=== PATIENT | male | born 1945 | race African-American/Black ===

== ENCOUNTER 2018-04-22 12:13 | Inpatient (IN) | payer OTHER ==
[2018-04-22 12:46] VITALS: BMI 24.3
--- NOTE | 2018-04-22 15:13 | HP ---
COWS - Scale Resting Pulse: 0= [place] 80 or Below Sweatin= Chills/Flushing Restless Observation: 1= Difficult to Sit Still Pupil Size: 1= Pupils >than Normal Bone or Joint Aches: 2= Severe Diffuse Aches Runny Nose/ Eye Tearin= Runny Nose/Eyes GI Upset > 30mins: 2= Nausea/Diarrhea Tremor Observation: 2= Slight Tremor Visible Yawning Observation: 1= 1-2x During Session Anxiety or Irritability: 2=Irritable/Anxious Goose Flesh Skin: 0=Smooth Skin COWS Score: 14 Admission ROS S - HPI Chief Complaint: i need help to stop using heroin Allergies/Adverse Reactions: Allergies Allergy/AdvReac Type Severity Reaction Status Date / Time No Known Allergies Allergy Verified 04/22/18 14:40 History of Present Illness: this 72 years old male with heroin dependence seeking detox,withdrawal symptom, last detox [facility] hepatitis c old fx of left hip in 2015 arthritis both hips ambulation with walker nicotine dependence no significant period of sobriety plan to go rehab after detox - Ebola screening Have you traveled outside of the country in the last 21 days: No Have you had contact with anyone from an Ebola affected area: No Have you been sick,other than usual withdrawal symptoms: No Do you have a fever: No - Review of Systems Constitutional: Chills, Loss of Appetite, Malaise, Night Sweats, Changes in sleep, Weakness EENT: reports: Tearing, Nose Congestion Respiratory: reports: No Symptoms reported Cardiac: reports: No Symptoms Reported GI: reports: Diarrhea, Nausea, Vomiting, Abdominal cramping : reports: No Symptoms Reported Musculoskeletal: reports: Back Pain, Joint Pain, Muscle Pain, Joint Stiffness, Other (ambulation with walker) Integumentary: reports: Dryness Neuro: reports: Headache, Tremors Endocrine: reports: No Symptoms Reported Hematology: reports: No Symptoms Reported Psychiatric: reports: No Sypmtoms Reported, Judgement Intact, Mood/Affect Appropiate, Orientated x3 Patient History - Patient Medical History Hx Anemia: No Hx Asthma: No Hx Chronic Obstructive Pulmonary Disease (COPD): No Hx Cancer: No Hx Cardiac Disorders: No Hx Congestive Heart Failure: No Hx Hypertension: No Hx Hypercholesterolemia: No Hx Pacemaker: No HX Cerebrovascular Accident: No Hx Seizures: No Hx Dementia: No Hx Diabetes: No Hx Gastrointestinal Disorders: No Hx Liver Disease: No Hx Genitourinary Disorders: No Hx Sexually Transmitted Disorders: No Hx Renal Disease (ESRD): No Hx Thyroid Disease: No Hx Human Immunodeficiency Virus (HIV): No (last 2018 negative) Hx Hepatitis C: Yes Hx Depression: No Hx Suicide Attempt: No Hx Schizophrenia: No Other Medical History: no suicidal,no homicidal - Patient Surgical History Past Surgical History: Yes Hx Neurologic Surgery: No Hx Cataract Extraction: No Hx Cardiac Surgery: No Hx Lung Surgery: No Hx Breast Surgery: No Hx Breast Biopsy: No Hx Abdominal Surgery: Yes (left inguinal hernia repair in 1962) Hx Appendectomy: No Hx Cholecystectomy: No Hx Genitourinary Surgery: No Hx Section: No Hx Orthopedic Surgery: No Other Surgical History: left inguinal hernia repair in 1962 Anesthesia Reaction: No - PPD History Previous Implant?: Yes Documented Results: Negative w/o proof Implanted On Prior [facility] Admission?: No PPD to be Administered?: Yes - Smoking Cessation Smoking history: Current every day smoker Have you smoked in the past 12 months: Yes Aproximately how many cigarettes per day: 3 Hx Chewing Tobacco Use: No Initiated information on smoking cessation: Yes 'Breaking Loose' booklet given: 04/22/18 - Substance & Tx. History Hx Alcohol Use: No Hx Substance Use: Yes Substance Use Type: Heroin Hx Substance Use Treatment: Yes (in 2016 at [facility]) - Substances Abused Heroin Route: Inhalation Frequency: Daily Amount used: 4-5 bags Age of first use: 19 Date of Last Use: 04/21/18 Suboxone Route: sl Amount used: 1 tab. Age of first use: 72 Date of Last Use: 03/21/18 Family Disease History - Family Disease History Family Disease History: Other: Father (alcohol,), Mother (), Brother (dsa ) Admission Physical Exam BHS - Vital Signs Vital Signs: Vital Signs - 24 hr 04/22/18 12:44 Temperature 98.4 F Pulse Rate 77 Respiratory 20 Rate Blood Pressure 111/68 - Physical General Appearance: Yes: Moderate Distress, Tremorous, Irritable, Sweating, Anxious HEENTM: Yes: Normal ENT Inspection, LIBERTAD, Pharynx Normal Respiratory: Yes: Lungs Clear, Normal Breath Sounds, No Respiratory Distress Neck: Yes: Within Normal Limits, Supple, Trachea in good position Breast: Yes: Within Normal Limits Cardiology: Yes: Within Normal Limits, Regular Rhythm, Regular Rate, S1, S2 Abdominal: Yes: Within Normal Limits, Normal Bowel Sounds, Non Tender, Flat, Soft Genitourinary: Yes: Within Normal Limits Back: Yes: Normal Inspection, Muscle Spasm Musculoskeletal: Yes: Back pain, Joint Stiffness, Muscle Pain, Other (old fx left hip arthritis both hips) Extremities: Yes: Non-Tender, Tremors Neurological: Yes: pediatric rn II-XII NML intact, Fully Oriented, Alert, Motor Strength 5/5 Integumentary: Yes: Dry Lymphatic: Yes: Within Normal Limits - Diagnostic (1) Opioid dependence with withdrawal Status: Acute (2) History of fracture of left hip Status: Chronic (3) Arthritis of both hips Status: Chronic (4) Walker as ambulation aid Status: Chronic (5) Nicotine dependence Status: Chronic Cleared for Admission [facility] - Detox or Rehab [facility] Level of Care: Medically Managed Detox Regimen/Protocol: Methadone [facility] Breath Alcohol Content Breath Alcohol Content: 0 Urine Drug Screen - Results Drug Screen Negative: No Urine Drug Screen Results: OPI-Opiates, BUP-Suboxone
[2018-04-22] MEDS ORDERED: P-EPHED 60MG/TRIPROLIDI 2.5MG TABLET PO PRN (15:26)
[2018-04-22] MEDS ORDERED: diazePAM 5 MG TABLET PO PRN (15:26)
[2018-04-22] MEDS ORDERED: MAG HYDROX/AL HYDROX/SIMETH 30 ML UNIT-DOSE CUP PO PRN (15:26)
[2018-04-22] MEDS ORDERED: MENTHOL/PHENOL 1 EACH UD MM PRN (15:26)
[2018-04-22] MEDS ORDERED: IBUPROFEN 400 MG TABLET (FP) PO PRN (15:26)
[2018-04-22] MEDS ORDERED: guaiFENesin/D-METHORPHAN HB 10 ML UNIT-DOSE CUPS PO PRN (15:26)
[2018-04-22] MEDS ORDERED: MAGNESIUM HYDROX 2400MG/30ML ORAL SUSPENSION 30 ML CUP PO PRN (15:26)
[2018-04-22] MEDS ORDERED: LOPERAMIDE HCL 2 MG CAPSULE PO PRN (15:26)
[2018-04-22] MEDS ORDERED: MAGNESIUM CITRATE 300 ML BOTTLE PO PRN (15:26)
[2018-04-22] MEDS ORDERED: METHADONE HCL 10 MG TABLET (FOR DETOX USE ONLY) PO ONE ×2 (15:26→23:00)
[2018-04-22] MEDS ORDERED: MELATONIN 5 MG TABLETS PO PRN (22:00)
[2018-04-22] MEDS: THIAMINE HCL 100 MG TABLET (FP) PO SCH (22:11)
[2018-04-22] MEDS: ACETAMINOPHEN 325 MG TABLET (FP) PO PRN (22:12)
[2018-04-22 23:51] LABS: URINE APPEARANCE CLEAR; URINE BILIRUBIN NEGATIVE (<2.0 mg/dL); URINE COLOR YELLOW; URINE GLUCOSE (UA) NEGATIVE (NEGATIVE); URINE KETONE NEGATIVE (NEGATIVE); URINE LEUK ESTERASE NEGATIVE (NEGATIVE); URINE NITRITE NEGATIVE (NEGATIVE); URINE PROTEIN NEGATIVE (NEGATIVE); URINE UROBILINOGEN 4.0 E.U/dl mg/dL (0.2-1.0)
[2018-04-23] MEDS: PRENATAL VITAMINS W/ FOLIC ACID TABLET (FP) PO SCH (09:31)
[2018-04-23] MEDS: ACETAMINOPHEN 325 MG TABLET (FP) PO PRN (09:31)
[2018-04-23] MEDS ORDERED: ACETAMINOPHEN 325 MG TABLET (FP) PO PRN (09:56)
[2018-04-23] MEDS ORDERED: METHADONE HCL 10 MG TABLET (FOR DETOX USE ONLY) PO ONE (10:00)
[2018-04-23 10:26] LABS: HEMATOCRIT 40.8 % (35.4-49); MEAN CELL VOLUME 93.7 fl (80-96); RBC 4.35 M/mm3 (4.00-5.60); WHITE BLOOD COUNT 6.6 K/mm3 (4.0-10.0)
[2018-04-23 10:33] LABS: MCH 29.9 pg (25.7-33.7); MCHC 31.9 g/dl (32.0-35.9); MEAN PLT VOLUME 11.2 fl (7.5-11.1); PLATELET COUNT 185 K/MM3 (134-434); RDW 14.2 % (11.9-15.9)
[2018-04-23 10:36] LABS: ALBUMIN 3.7 g/dl (3.4-5.0); ALK PHOS 39 U/L (45-117); ANION GAP 10 MMOL/L (8-16); BILIRUBIN,TOTAL 0.5 mg/dL (0.2-1); BLOOD UREA NITROGEN 16 mg/dL (7-18); CALCIUM 9.1 mg/dL (8.5-10.1); CHLORIDE 104 mmol/L (98-107); CO2 26 mmol/L (21-32); CREATININE 0.7 mg/dL (0.55-1.3); GLUCOSE,RANDOM 87 mg/dL (74-106); SGOT/AST 30 U/L (15-37); SGPT/ALT 30 U/L (13-61); SODIUM 139 mmol/L (136-145); TOT PROT 7.4 g/dl (6.4-8.2)
--- NOTE | 2018-04-23 11:36 | EKG ---
Test Reason : Blood Pressure : / mmHG Vent. Rate : 063 BPM Atrial Rate : 063 BPM P-R Int : 168 ms QRS Dur : 086 ms QT Int : 410 ms P-R-T Axes : 083 081 072 degrees QTc Int : 419 ms NORMAL SINUS RHYTHM VOLTAGE CRITERIA FOR LEFT VENTRICULAR HYPERTROPHY ABNORMAL ECG NO PREVIOUS ECGS AVAILABLE Confirmed by АННА MOTA MD ([id number]) on 04/23/2018 11:36:04 AM Referred By: Confirmed By:АННА MOTA MD
--- NOTE | 2018-04-23 14:34 | PN ---
BHS COWS - Scale Resting Pulse: 0= [place] 80 or Below Sweatin= Chills/Flushing Restless Observation: 3= Extraneous Movement Pupil Size: 0= Normal to Room Light Bone or Joint Aches: 2= Severe Diffuse Aches Runny Nose/ Eye Tearin= Runny Nose/Eyes GI Upset > 30mins: 3= Vomiting/Diarrhea Tremor Observation of Outstretched Hands: 2= Slight Tremor Visible Yawning Observation: 1= 1-2x During Session Anxiety or Irritability: 2=Irritable/Anxious Goose Flesh Skin: 0=Smooth Skin COWS Score: 16 BHS Progress Note (SOAP) Subjective: Poor appetite, pain in hips, sweating, constipation (refused med at this time), interrupted sleep Objective: 04/23/18 14:33 Last Vital Signs Temp Pulse Resp BP Pulse Ox 97.7 F 71 17 110/66 04/23/18 10:00 04/23/18 10:00 04/23/18 10:00 04/23/18 10:00 Laboratory Tests 04/22/18 04/23/18 04/23/18 21:05 05:40 05:40 WBC 6.6 RBC 4.35 Hgb 13.0 Hct 40.8 MCV 93.7 MCH 29.9 MCHC 31.9 L RDW 14.2 Plt Count 185 MPV 11.2 H Sodium 139 Potassium 4.0 Chloride 104 Carbon Dioxide 26 Anion Gap 10 BUN 16 Creatinine 0.7 Creat Clearance w eGFR > 60 Random Glucose 87 Calcium 9.1 Total Bilirubin 0.5 AST 30 ALT 30 Alkaline Phosphatase 39 L Total Protein 7.4 Albumin 3.7 Urine Color Yellow Urine Appearance Clear Urine pH 7.0 Ur Specific [place] 1.018 Urine Protein Negative Urine Glucose (UA) Negative Urine Ketones Negative Urine Blood Negative Urine Nitrite Negative Urine Bilirubin Negative Urine Urobilinogen 4.0 e.u/dl Ur Leukocyte Esterase Negative RPR Titer 04/23/18 05:40 WBC RBC Hgb Hct MCV MCH MCHC RDW Plt Count MPV Sodium Potassium Chloride Carbon Dioxide Anion Gap BUN Creatinine Creat Clearance w eGFR Random Glucose Calcium Total Bilirubin AST ALT Alkaline Phosphatase Total Protein Albumin Urine Color Urine Appearance Urine pH Ur Specific [place] Urine Protein Urine Glucose (UA) Urine Ketones Urine Blood Urine Nitrite Urine Bilirubin Urine Urobilinogen Ur Leukocyte Esterase RPR Titer Nonreactive Labs reviewed Assessment: 04/23/18 14:34 Withdrawal symptoms Plan: Continue detox Encouraged PO water intake
[2018-04-23] MEDS: NAPROXEN 500 MG TABLET (FP) PO PRN ×2 (14:56→22:15)
[2018-04-23] MEDS: THIAMINE HCL 100 MG TABLET (FP) PO SCH (22:15)
[2018-04-24] MEDS: PRENATAL VITAMINS W/ FOLIC ACID TABLET (FP) PO SCH (09:32)
[2018-04-24] MEDS: NAPROXEN 500 MG TABLET (FP) PO PRN (09:32)
[2018-04-24] MEDS ORDERED: METHADONE HCL 5 MG TABLET (FOR DETOX USE ONLY) PO ONE (10:00)
--- NOTE | 2018-04-24 10:04 | PN ---
BHS COWS - Scale Resting Pulse: 0= [place] 80 or Below Sweatin= No chills or Flushing Restless Observation: 3= Extraneous Movement Pupil Size: 0= Normal to Room Light Bone or Joint Aches: 1= Mild Discomfort Runny Nose/ Eye Tearin= Runny Nose/Eyes GI Upset > 30mins: 0= None Tremor Observation of Outstretched Hands: 1= Tremor [place], Not Seen Yawning Observation: 2= >3x During Session Anxiety or Irritability: 2=Irritable/Anxious Goose Flesh Skin: 0=Smooth Skin COWS Score: 11 S Progress Note (SOAP) Subjective: c/o of feeling anxious, body aches, interrupted sleep Objective: 04/24/18 10:04 Vital Signs Temperature 97.7 F 04/24/18 09:12 Pulse Rate 54 L 04/24/18 09:12 Respiratory Rate 18 04/24/18 09:12 Blood Pressure 109/55 L 04/24/18 09:12 O2 Sat by Pulse Oximetry (%) Laboratory Last Values WBC 6.6 K/mm3 (4.0-10.0) 04/23/18 05:40 RBC 4.35 M/mm3 (4.00-5.60) 04/23/18 05:40 Hgb 13.0 GM/dL (11.7-16.9) 04/23/18 05:40 Hct 40.8 % (35.4-49) 04/23/18 05:40 MCV 93.7 fl (80-96) 04/23/18 05:40 MCH 29.9 pg (25.7-33.7) 04/23/18 05:40 MCHC 31.9 g/dl (32.0-35.9) L 04/23/18 05:40 RDW 14.2 % (11.9-15.9) 04/23/18 05:40 Plt Count 185 K/MM3 (134-434) 04/23/18 05:40 MPV 11.2 fl (7.5-11.1) H 04/23/18 05:40 Sodium 139 mmol/L (136-145) 04/23/18 05:40 Potassium 4.0 mmol/L (3.5-5.1) 04/23/18 05:40 Chloride 104 mmol/L (98-107) 04/23/18 05:40 Carbon Dioxide 26 mmol/L (21-32) 04/23/18 05:40 Anion Gap 10 MMOL/L (8-16) 04/23/18 05:40 BUN 16 mg/dL (7-18) 04/23/18 05:40 Creatinine 0.7 mg/dL (0.55-1.3) 04/23/18 05:40 Creat Clearance w eGFR > 60 (>60) 04/23/18 05:40 Random Glucose 87 mg/dL (74-106) 04/23/18 05:40 Calcium 9.1 mg/dL (8.5-10.1) 04/23/18 05:40 Total Bilirubin 0.5 mg/dL (0.2-1) 04/23/18 05:40 AST 30 U/L (15-37) 04/23/18 05:40 ALT 30 U/L (13-61) 04/23/18 05:40 Alkaline Phosphatase 39 U/L (45-117) L 04/23/18 05:40 Total Protein 7.4 g/dl (6.4-8.2) 04/23/18 05:40 Albumin 3.7 g/dl (3.4-5.0) 04/23/18 05:40 Urine Color Yellow 04/22/18 21:05 Urine Appearance Clear 04/22/18 21:05 Urine pH 7.0 (5.0-8.0) 04/22/18 21:05 Ur Specific [place] 1.018 (1.010-1.035) 04/22/18 21:05 Urine Protein Negative (NEGATIVE) 04/22/18 21:05 Urine Glucose (UA) Negative (NEGATIVE) 04/22/18 21:05 Urine Ketones Negative (NEGATIVE) 04/22/18 21:05 Urine Blood Negative (NEGATIVE) 04/22/18 21:05 Urine Nitrite Negative (NEGATIVE) 04/22/18 21:05 Urine Bilirubin Negative (<2.0 mg/dL) 04/22/18 21:05 Urine Urobilinogen 4.0 e.u/dl mg/dL (0.2-1.0) 04/22/18 21:05 Ur Leukocyte Esterase Negative (NEGATIVE) 04/22/18 21:05 RPR Titer Nonreactive (NONREACTIVE) 04/23/18 05:40 Assessment: 04/24/18 14:54 withdrawal sx Plan: increase po fluids continue detox continue to monitor
[2018-04-24] MEDS: METHYL SALICYLATE/MENTHOL OINT 30 GM TUBE TP SCH (14:30)
[2018-04-24] MEDS: THIAMINE HCL 100 MG TABLET (FP) PO SCH (23:34)
[2018-04-25] MEDS: NAPROXEN 500 MG TABLET (FP) PO PRN ×2 (05:24→21:44)
--- NOTE | 2018-04-25 06:28 | CONSULT ---
[facility] Psychiatric Consult - Data Date of interview: 04/25/18 Admission source: [facility] Identifying data: Mr Boudreaux is 72 years old Black male, father of 5 children, retired on social security, living in a homeless custodial seeking detox treatment for opioid Substance Abuse History: Reports history of opioid and suboxone use. Refer to addiction counselor's summary for further information Medical History: Significant fot hepatitis C, arthritis both hips/knees and history of surgeries(old fracture left hip & left inguinal hernia repair in 1963 ). Smokes 3 cigarettes daily Psychiatric History: Denies history of previous psychiatric treatment Physical/Sexual Abuse/Trauma History: Denies history of emotional, physical or sexual abuse as well as DV relationship. No service. 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 Additional Comment: Reports history of multiple previous misdemeanor arrests. No probation currently Mental Status Exam - Mental Status Exam Alert and Oriented to: Time, Place, Person Cognitive Function: Fair Patient Appearance: Well Groomed Mood: Depressed Affect: Appropriate Patient Behavior: Cooperative Speech Pattern: Clear Voice Loudness: Normal Thought Process: Intact, Goal Oriented Hallucinations: Denies Suicidal Ideation: Denies Homicidal Ideation: Denies Insight/Judgement: Fair Sleep: Poorly Appetite: Fair Muscle strength/Tone: Normal Gait/Station: Normal Psychiatric Findings - Problem List ([place] 1, 2,3) (1) Substance induced mood disorder Current Visit: Yes Status: Acute (2) Substance-induced sleep disorder Current Visit: Yes Status: Acute (3) Opioid dependence with withdrawal Current Visit: Yes Status: Acute (4) Nicotine dependence Current Visit: Yes Status: Chronic (5) History of fracture of left hip Current Visit: Yes Status: Chronic (6) Walker as ambulation aid Current Visit: Yes Status: Chronic (7) Arthritis of both hips Current Visit: Yes Status: Chronic (8) Hepatitis C Current Visit: Yes Status: Chronic Qualifiers: Viral hepatitis chronicity: chronic - Initial Treatment Plan Initial Treatment Plan: 1) Start Melatonin 5 mg po HS prn for insomnia. 2) Continue inpatient detoxification
[2018-04-25] MEDS: METHYL SALICYLATE/MENTHOL OINT 30 GM TUBE TP SCH (09:53)
[2018-04-25] MEDS: PRENATAL VITAMINS W/ FOLIC ACID TABLET (FP) PO SCH (09:53)
[2018-04-25] MEDS ORDERED: METHADONE HCL 5 MG TABLET (FOR DETOX USE ONLY) PO ONE (10:00)
--- NOTE | 2018-04-25 17:20 | PN ---
S Progress Note (SOAP) Subjective: Interrupted sleep, diarrhea Objective: 04/25/18 17:18 Last Vital Signs Temp Pulse Resp BP Pulse Ox 98.7 F 81 18 90/60 04/25/18 13:50 04/25/18 13:50 04/25/18 13:50 04/25/18 13:50 Hypotension noted Laboratory Tests 04/22/18 04/23/18 04/23/18 21:05 05:40 05:40 WBC 6.6 RBC 4.35 Hgb 13.0 Hct 40.8 MCV 93.7 MCH 29.9 MCHC 31.9 L RDW 14.2 Plt Count 185 MPV 11.2 H Sodium 139 Potassium 4.0 Chloride 104 Carbon Dioxide 26 Anion Gap 10 BUN 16 Creatinine 0.7 Creat Clearance w eGFR > 60 Random Glucose 87 Calcium 9.1 Total Bilirubin 0.5 AST 30 ALT 30 Alkaline Phosphatase 39 L Total Protein 7.4 Albumin 3.7 Urine Color Yellow Urine Appearance Clear Urine pH 7.0 Ur Specific [place] 1.018 Urine Protein Negative Urine Glucose (UA) Negative Urine Ketones Negative Urine Blood Negative Urine Nitrite Negative Urine Bilirubin Negative Urine Urobilinogen 4.0 e.u/dl Ur Leukocyte Esterase Negative RPR Titer 04/23/18 05:40 WBC RBC Hgb Hct MCV MCH MCHC RDW Plt Count MPV Sodium Potassium Chloride Carbon Dioxide Anion Gap BUN Creatinine Creat Clearance w eGFR Random Glucose Calcium Total Bilirubin AST ALT Alkaline Phosphatase Total Protein Albumin Urine Color Urine Appearance Urine pH Ur Specific [place] Urine Protein Urine Glucose (UA) Urine Ketones Urine Blood Urine Nitrite Urine Bilirubin Urine Urobilinogen Ur Leukocyte Esterase RPR Titer Nonreactive Labs reviewed Assessment: 04/25/18 17:19 Withdrawal symptoms Noted with hypotension Plan: Continue detox Hypotension: asymptomatic, encouraged PO water intake
[2018-04-25] MEDS: THIAMINE HCL 100 MG TABLET (FP) PO SCH (21:45)
[2018-04-26] MEDS ORDERED: METHADONE HCL 10 MG TABLET (FOR DETOX USE ONLY) PO ONE (10:00)
[2018-04-26] MEDS: PRENATAL VITAMINS W/ FOLIC ACID TABLET (FP) PO SCH (10:22)
[2018-04-26] MEDS: METHYL SALICYLATE/MENTHOL OINT 30 GM TUBE TP SCH (10:23)
[2018-04-26] MEDS: NAPROXEN 500 MG TABLET (FP) PO PRN ×2 (10:25→22:13)
--- NOTE | 2018-04-26 14:56 | PN ---
BHS Progress Note (SOAP) Subjective: Pain in hips, interrupted sleep, poor appetite Objective: 04/26/18 14:47 Last Vital Signs Temp Pulse Resp BP Pulse Ox 97.6 F 56 L 18 113/54 L 04/26/18 13:31 04/26/18 13:31 04/26/18 13:31 04/26/18 13:31 Laboratory Tests 04/22/18 04/23/18 04/23/18 21:05 05:40 05:40 WBC 6.6 RBC 4.35 Hgb 13.0 Hct 40.8 MCV 93.7 MCH 29.9 MCHC 31.9 L RDW 14.2 Plt Count 185 MPV 11.2 H Sodium 139 Potassium 4.0 Chloride 104 Carbon Dioxide 26 Anion Gap 10 BUN 16 Creatinine 0.7 Creat Clearance w eGFR > 60 Random Glucose 87 Calcium 9.1 Total Bilirubin 0.5 AST 30 ALT 30 Alkaline Phosphatase 39 L Total Protein 7.4 Albumin 3.7 Urine Color Yellow Urine Appearance Clear Urine pH 7.0 Ur Specific [place] 1.018 Urine Protein Negative Urine Glucose (UA) Negative Urine Ketones Negative Urine Blood Negative Urine Nitrite Negative Urine Bilirubin Negative Urine Urobilinogen 4.0 e.u/dl Ur Leukocyte Esterase Negative RPR Titer 04/23/18 05:40 WBC RBC Hgb Hct MCV MCH MCHC RDW Plt Count MPV Sodium Potassium Chloride Carbon Dioxide Anion Gap BUN Creatinine Creat Clearance w eGFR Random Glucose Calcium Total Bilirubin AST ALT Alkaline Phosphatase Total Protein Albumin Urine Color Urine Appearance Urine pH Ur Specific [place] Urine Protein Urine Glucose (UA) Urine Ketones Urine Blood Urine Nitrite Urine Bilirubin Urine Urobilinogen Ur Leukocyte Esterase RPR Titer Nonreactive Labs reviewed Assessment: 04/26/18 14:56 Withdrawal symptoms Plan: Continue detox Encouraged PO water intake
[2018-04-26] MEDS: THIAMINE HCL 100 MG TABLET (FP) PO SCH (22:13)
[2018-04-27] MEDS ORDERED: METHADONE HCL 5 MG TABLET (FOR DETOX USE ONLY) PO ONE (06:00)
[2018-04-27] MEDS: METHYL SALICYLATE/MENTHOL OINT 30 GM TUBE TP SCH (10:17)
[2018-04-27] MEDS: PRENATAL VITAMINS W/ FOLIC ACID TABLET (FP) PO SCH (10:17)
--- NOTE | 2018-04-27 12:35 | DS ---
[facility] Detox Discharge Summary Admission Date: 04/22/18 Discharge Date: 04/27/18 - History Present History: Opioid Dependence Pertinent Past History: Hepatitis C Arthritis in hips Nicotine dependence Opioid dependence - Physical Exam Results Vital Signs: Vital Signs Temperature 97.7 F 04/27/18 09:28 Pulse Rate 68 04/27/18 09:28 Respiratory Rate 18 04/27/18 09:28 Blood Pressure 101/56 L 04/27/18 09:28 O2 Sat by Pulse Oximetry (%) Pertinent Admission Physical Exam Findings: Withdrawal symptoms Laboratory Tests 04/22/18 04/23/18 04/23/18 21:05 05:40 05:40 WBC 6.6 RBC 4.35 Hgb 13.0 Hct 40.8 MCV 93.7 MCH 29.9 MCHC 31.9 L RDW 14.2 Plt Count 185 MPV 11.2 H Sodium 139 Potassium 4.0 Chloride 104 Carbon Dioxide 26 Anion Gap 10 BUN 16 Creatinine 0.7 Creat Clearance w eGFR > 60 Random Glucose 87 Calcium 9.1 Total Bilirubin 0.5 AST 30 ALT 30 Alkaline Phosphatase 39 L Total Protein 7.4 Albumin 3.7 Urine Color Yellow Urine Appearance Clear Urine pH 7.0 Ur Specific [place] 1.018 Urine Protein Negative Urine Glucose (UA) Negative Urine Ketones Negative Urine Blood Negative Urine Nitrite Negative Urine Bilirubin Negative Urine Urobilinogen 4.0 e.u/dl Ur Leukocyte Esterase Negative RPR Titer 04/23/18 05:40 WBC RBC Hgb Hct MCV MCH MCHC RDW Plt Count MPV Sodium Potassium Chloride Carbon Dioxide Anion Gap BUN Creatinine Creat Clearance w eGFR Random Glucose Calcium Total Bilirubin AST ALT Alkaline Phosphatase Total Protein Albumin Urine Color Urine Appearance Urine pH Ur Specific [place] Urine Protein Urine Glucose (UA) Urine Ketones Urine Blood Urine Nitrite Urine Bilirubin Urine Urobilinogen Ur Leukocyte Esterase RPR Titer Nonreactive Labs reviewed - Treatment Hospital Course: Detox Protocol Followed, Detoxed Safely, Responded well, Discharged Condition Good, Rehab Referral Accepted - Medication Discharge Medications: Ambulatory Orders NK [No Known Home Medication] 04/22/18 - Diagnosis (1) Hepatitis C Current Visit: Yes Status: Chronic Qualifiers: Viral hepatitis chronicity: chronic (2) Arthritis of both hips Current Visit: Yes Status: Chronic (3) Nicotine dependence Current Visit: Yes Status: Chronic (4) Opioid dependence with withdrawal Current Visit: Yes Status: Acute (5) Hypotension Current Visit: Yes Status: Acute - AMA Did Patient Leave Against Medical Advice: No ([facility]
[2018-04-27 13:52] VITALS: BP 100/45; PULSE 64; TEMP 98.1
== END 2018-04-27 14:25 | disposition other institution (70) | DRG 897 ==
LOC: YASAS 12:13 → Y3N 15:32
PROC: HZ2ZZZZ Detoxification Services for Substance Abuse Treatment (ICD-10-PCS; principal; 2018-04-22)
DX: F11.23 Opioid dependence with withdrawal (principal); F19.282 Other psychoactive substance dependence with psychoactive substance-induced sleep disorder; F17.210 Nicotine dependence, cigarettes, uncomplicated; F19.24 Other psychoactive substance dependence with psychoactive substance-induced mood disorder; I95.9 Hypotension, unspecified; B18.2 Chronic viral hepatitis C; M13.852 Other specified arthritis, left hip; M13.851 Other specified arthritis, right hip; R26.89 Other abnormalities of gait and mobility; Z99.89 Dependence on other enabling machines and devices; Z87.81 Personal history of (healed) traumatic fracture
CPT/HCPCS: 36415; 80053; 81003; 85027; 86593; 93005; 93010

== ENCOUNTER 2018-04-27 14:44 | Inpatient (IN) | payer OTHER ==
[2018-04-27] MEDS ORDERED: P-EPHED 60MG/TRIPROLIDI 2.5MG TABLET PO PRN (15:05)
[2018-04-27] MEDS ORDERED: MAG HYDROX/AL HYDROX/SIMETH 30 ML UNIT-DOSE CUP PO PRN (15:05)
[2018-04-27] MEDS ORDERED: LOPERAMIDE HCL 2 MG CAPSULE PO PRN (15:05)
[2018-04-27] MEDS ORDERED: MENTHOL/PHENOL 1 EACH UD MM PRN (15:05)
[2018-04-27] MEDS ORDERED: ACETAMINOPHEN 325 MG TABLET (FP) PO PRN ×2 (15:05→15:26)
[2018-04-27] MEDS ORDERED: guaiFENesin/D-METHORPHAN HB 10 ML UNIT-DOSE CUPS PO PRN (15:05)
[2018-04-27] MEDS ORDERED: MAGNESIUM CITRATE 300 ML BOTTLE PO PRN (15:05)
[2018-04-27] MEDS ORDERED: IBUPROFEN 400 MG TABLET (FP) PO PRN (15:05)
[2018-04-27] MEDS ORDERED: MAGNESIUM HYDROX 2400MG/30ML ORAL SUSPENSION 30 ML CUP PO PRN (15:05)
[2018-04-27] MEDS: METHYL SALICYLATE/MENTHOL OINT 30 GM TUBE TP SCH (21:45)
[2018-04-27] MEDS: THIAMINE HCL 100 MG TABLET (FP) PO SCH (21:45)
[2018-04-27] MEDS: NAPROXEN 500 MG TABLET (FP) PO PRN (21:48)
[2018-04-27] MEDS ORDERED: MELATONIN 5 MG TABLETS PO PRN (22:00)
[2018-04-28] MEDS: METHYL SALICYLATE/MENTHOL OINT 30 GM TUBE TP SCH ×2 (10:37→21:53)
[2018-04-28] MEDS: PRENATAL VITAMINS W/ FOLIC ACID TABLET (FP) PO SCH (10:37)
[2018-04-28] MEDS: NAPROXEN 500 MG TABLET (FP) PO PRN (21:54)
[2018-04-28] MEDS: THIAMINE HCL 100 MG TABLET (FP) PO SCH (21:55)
[2018-04-29] MEDS ORDERED: LIDOCAINE 5% TOPICAL PATCH TP SCH ×2 (10:15→10:29)
--- NOTE | 2018-04-29 10:35 | PN ---
S Progress Note Note: Patient c/o bilateral hip pain despite treatment with Naprosyn. Patient reports history of OA. Vital Signs Temperature 97.8 F 04/29/18 07:18 Pulse Rate 57 L 04/29/18 07:18 Respiratory Rate 18 04/29/18 07:18 Blood Pressure 118/71 04/29/18 07:18 O2 Sat by Pulse Oximetry (%) PE: Skin warm and dry, afebrile alert and oriented x 3 amb with assistance of walker in NAD a/p bilateral hip pain continue naprosyn start lidocaine patch to both hips daily and remove hs continue to monitor clinically
[2018-04-29] MEDS: PRENATAL VITAMINS W/ FOLIC ACID TABLET (FP) PO SCH (10:55)
[2018-04-29] MEDS: METHYL SALICYLATE/MENTHOL OINT 30 GM TUBE TP SCH ×2 (10:55→21:55)
[2018-04-29] MEDS: LIDOCAINE 5% TOPICAL PATCH TP SCH (11:00)
--- NOTE | 2018-04-29 12:01 | HP ---
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 This is patient's first admission to rehab at [facility]. Patient admitted to rehab for opioid dependence. Medical History: Significant for hepatitis C, arthritis both hips/knees and history of surgeries(old fracture left hip & left inguinal hernia repair in 1962 ) Psychiatric History: Patient denies h/o psychiatric hospitalization, outpatient care, and suicide attempt. Physical/Sexual Abuse/Trauma History: denies. Vital Signs: Vital Signs - 24 hr 04/29/18 04/29/18 04/29/18 00:30 03:30 07:18 Temperature 97.8 F Pulse Rate 57 L Respiratory 18 18 18 Rate Blood Pressure 118/71 Allergies/Adverse Reactions: Allergies Allergy/AdvReac Type Severity Reaction Status Date / Time No Known Allergies Allergy Verified 04/22/18 14:40 Date of last physical exam: 04/22/18 Concur with the findings of this exam: Yes - Substance Abuse/Tx History Hx Alcohol Use: Yes (rarely, maybe one drink per month) Hx Substance Use: Yes (Heroin- 5 bags daily) Substance Use Type: Heroin Hx Substance Use Treatment: Yes (This is patient's first rehab program.) Mental Status Exam - Mental Status Exam Alert and Oriented to: Time, Place, Person Cognitive Function: Good Patient Appearance: Well Groomed Mood: Hopeful Affect: Appropriate Patient Behavior: Appropriate, Cooperative Speech Pattern: Appropriate Voice Loudness: Normal Thought Process: Intact, Goal Oriented Thought Disorder: Not Present Hallucinations: Denies Suicidal Ideation: Denies Homicidal Ideation: Denies Insight/Judgement: Poor Sleep: Fair Appetite: Fair Muscle strength/Tone: Normal Gait/Station: Other (Patient ambulates with assistance of a rolling walker.) Psychiatric Findings - Problem List ([place] 1, 2,3) (1) Opioid dependence Current Visit: Yes Status: Acute (2) Nicotine dependence Current Visit: No Status: Chronic - Initial Treatment Plan Initial Treatment Plan: Psychoeducation provided. Detoxification in progress. Observation.
[2018-04-29] MEDS: LIDOCAINE PATCH REMOVAL MC SCH (21:55)
[2018-04-29] MEDS: THIAMINE HCL 100 MG TABLET (FP) PO SCH (21:55)
[2018-04-30] MEDS: PRENATAL VITAMINS W/ FOLIC ACID TABLET (FP) PO SCH (10:34)
[2018-04-30] MEDS: METHYL SALICYLATE/MENTHOL OINT 30 GM TUBE TP SCH ×2 (10:34→21:50)
[2018-04-30] MEDS: LIDOCAINE 5% TOPICAL PATCH TP SCH (10:36)
[2018-04-30] MEDS: NAPROXEN 500 MG TABLET (FP) PO PRN (10:37)
--- NOTE | 2018-04-30 12:53 | PN ---
S Progress Note Note: Pt states he is having back pain/hip pain. States he has fractures but did not want it repaired. Uses a walker/wheelchair for mobility. Vital Signs - 24 hr 04/30/18 04/30/18 00:30 07:07 Temperature 98.5 F Pulse Rate 59 L Respiratory 18 18 Rate Blood Pressure 127/77 a/p Back pain/hip pain: continue currently prescribed pain meds: tylenol/ naprosyn.pain patch increase mobility- walking and on bed stretching exercises- pt understood and agreed to plan
[2018-04-30] MEDS: LIDOCAINE PATCH REMOVAL MC SCH (21:50)
[2018-04-30] MEDS: THIAMINE HCL 100 MG TABLET (FP) PO SCH (21:50)
[2018-05-01] MEDS: LIDOCAINE 5% TOPICAL PATCH TP SCH (10:36)
[2018-05-01] MEDS: METHYL SALICYLATE/MENTHOL OINT 30 GM TUBE TP SCH ×2 (10:37→21:55)
[2018-05-01] MEDS: PRENATAL VITAMINS W/ FOLIC ACID TABLET (FP) PO SCH (10:37)
[2018-05-01] MEDS: LIDOCAINE PATCH REMOVAL MC SCH (21:55)
[2018-05-01] MEDS: THIAMINE HCL 100 MG TABLET (FP) PO SCH (21:55)
[2018-05-02] MEDS: PRENATAL VITAMINS W/ FOLIC ACID TABLET (FP) PO SCH (10:12)
[2018-05-02] MEDS: METHYL SALICYLATE/MENTHOL OINT 30 GM TUBE TP SCH ×2 (10:12→21:49)
[2018-05-02] MEDS: LIDOCAINE 5% TOPICAL PATCH TP SCH (10:12)
[2018-05-02] MEDS: NAPROXEN 500 MG TABLET (FP) PO PRN (10:13)
[2018-05-02] MEDS: LIDOCAINE PATCH REMOVAL MC SCH (21:49)
[2018-05-02] MEDS: THIAMINE HCL 100 MG TABLET (FP) PO SCH (21:50)
[2018-05-03] MEDS: LIDOCAINE 5% TOPICAL PATCH TP SCH (10:14)
[2018-05-03] MEDS: METHYL SALICYLATE/MENTHOL OINT 30 GM TUBE TP SCH ×2 (10:15→22:14)
[2018-05-03] MEDS: PRENATAL VITAMINS W/ FOLIC ACID TABLET (FP) PO SCH (10:15)
--- NOTE | 2018-05-03 14:14 | PN ---
BHS Progress Note Note: PT STILL C/O SEVERE HIP PAIN-CHRONIC ARTHRITIS OF LEGS AND HIP. ALL CURRENT MEDS NOT EFFECTIVE. WHEELCHAIR BOUND. Vital Signs 05/03/18 07:23 Temperature 98.7 F Pulse Rate 71 Respiratory 18 Rate Blood Pressure 104/70 PLAN:ADD FLEXERIL 10 MG PO TID PRN
[2018-05-03] MEDS: CYCLOBENZAPRINE HCL 10 MG TABLET (FP) PO PRN (14:32)
[2018-05-03] MEDS: THIAMINE HCL 100 MG TABLET (FP) PO SCH (22:14)
[2018-05-03] MEDS: LIDOCAINE PATCH REMOVAL MC SCH (23:26)
[2018-05-04] MEDS: PRENATAL VITAMINS W/ FOLIC ACID TABLET (FP) PO SCH (10:53)
[2018-05-04] MEDS: LIDOCAINE 5% TOPICAL PATCH TP SCH (10:54)
[2018-05-04] MEDS: CYCLOBENZAPRINE HCL 10 MG TABLET (FP) PO PRN ×2 (10:55→21:35)
[2018-05-04] MEDS: METHYL SALICYLATE/MENTHOL OINT 30 GM TUBE TP SCH ×2 (10:56→21:38)
[2018-05-04] MEDS: LIDOCAINE PATCH REMOVAL MC SCH (21:34)
[2018-05-04] MEDS: THIAMINE HCL 100 MG TABLET (FP) PO SCH (21:34)
[2018-05-04] MEDS: NAPROXEN 500 MG TABLET (FP) PO PRN (21:36)
[2018-05-05] MEDS: PRENATAL VITAMINS W/ FOLIC ACID TABLET (FP) PO SCH (10:27)
[2018-05-05] MEDS: NAPROXEN 500 MG TABLET (FP) PO PRN (10:28)
[2018-05-05] MEDS: METHYL SALICYLATE/MENTHOL OINT 30 GM TUBE TP SCH ×2 (10:28→21:47)
[2018-05-05] MEDS: LIDOCAINE 5% TOPICAL PATCH TP SCH (10:28)
[2018-05-05] MEDS: CYCLOBENZAPRINE HCL 10 MG TABLET (FP) PO PRN (10:28)
[2018-05-05] MEDS: LIDOCAINE PATCH REMOVAL MC SCH (21:47)
[2018-05-05] MEDS: THIAMINE HCL 100 MG TABLET (FP) PO SCH (21:48)
[2018-05-06] MEDS: PRENATAL VITAMINS W/ FOLIC ACID TABLET (FP) PO SCH (10:54)
[2018-05-06] MEDS: LIDOCAINE 5% TOPICAL PATCH TP SCH (10:54)
[2018-05-06] MEDS: CYCLOBENZAPRINE HCL 10 MG TABLET (FP) PO PRN (10:55)
[2018-05-06] MEDS: METHYL SALICYLATE/MENTHOL OINT 30 GM TUBE TP SCH ×2 (11:06→21:52)
[2018-05-06] MEDS: THIAMINE HCL 100 MG TABLET (FP) PO SCH (21:52)
[2018-05-06] MEDS: LIDOCAINE PATCH REMOVAL MC SCH (21:52)
[2018-05-07] MEDS: PRENATAL VITAMINS W/ FOLIC ACID TABLET (FP) PO SCH (10:38)
[2018-05-07] MEDS: METHYL SALICYLATE/MENTHOL OINT 30 GM TUBE TP SCH ×2 (10:40→22:07)
[2018-05-07] MEDS: LIDOCAINE 5% TOPICAL PATCH TP SCH (10:40)
[2018-05-07] MEDS: NAPROXEN 500 MG TABLET (FP) PO PRN (10:46)
[2018-05-07] MEDS: THIAMINE HCL 100 MG TABLET (FP) PO SCH (22:07)
[2018-05-07] MEDS: LIDOCAINE PATCH REMOVAL MC SCH (22:07)
[2018-05-08] MEDS: LIDOCAINE 5% TOPICAL PATCH TP SCH (10:09)
[2018-05-08] MEDS: PRENATAL VITAMINS W/ FOLIC ACID TABLET (FP) PO SCH (10:09)
[2018-05-08] MEDS: METHYL SALICYLATE/MENTHOL OINT 30 GM TUBE TP SCH ×2 (10:10→21:47)
[2018-05-08] MEDS: NAPROXEN 500 MG TABLET (FP) PO PRN (10:11)
[2018-05-08] MEDS: THIAMINE HCL 100 MG TABLET (FP) PO SCH (21:48)
[2018-05-08] MEDS: LIDOCAINE PATCH REMOVAL MC SCH (21:48)
--- NOTE | 2018-05-09 07:20 | PN ---
Psychiatric Progress Note Vital Signs: Vital Signs Period Temp Pulse Resp BP Sys/Shi Pulse Ox Last 24 Hr 98.5 F 81 18-18 118/75 Date of Session: 05/09/18 Chief Complaint:: Discharge Note HPI: Patient addressing Oipoid Dependence comorbid with Nicotine Dependence ROS: Hep C, Arthritis both hips/knees Current Medications: Active Medications Generic Name Dose Route Start Last Admin Trade Name Freq PRN Reason Stop Dose Admin Acetaminophen 650 mg 04/27/18 15:26 Tylenol - PO Q6H PRN PAIN LEVEL 1-5 Al Hydroxide/Mg Hydroxide 30 ml 04/27/18 15:05 Mylanta Oral Suspension - PO Q6H PRN DYSPEPSIA Cyclobenzaprine HCl 10 mg 05/03/18 14:07 05/06/18 10:55 Flexeril - PO 10 mg TID PRN Administration MUSCLE SPASMS Eucalyptus/Menthol/Phenol/Sorbitol 1 each 04/27/18 15:05 Cepastat Lozenge - MM Q4H PRN SORE THROAT Guaifenesin 10 ml 04/27/18 15:05 Robitussin Dm - PO Q6H PRN COUGH Lidocaine 2 patch 04/29/18 10:00 05/08/18 10:09 Lidoderm Patch - TP 2 patch DAILY ZACARIAS Administration Loperamide HCl 4 mg 04/27/18 15:05 Imodium - PO Q6H PRN DIARRHEA Magnesium Citrate 300 ml 04/27/18 15:05 Citroma - PO Q48H PRN CONSTIPATION Magnesium Hydroxide 30 ml 04/27/18 15:05 Milk Of Magnesia - PO DAILY PRN CONSTIPATION Melatonin 5 mg 04/27/18 22:00 Melatonin PO HS PRN INSOMNIA Methyl Salicylate 1 applic 04/27/18 22:00 05/08/18 21:47 Armando-Dinh - TP Not Given BID ZACARIAS Miscellaneous 2 each 04/29/18 22:00 05/08/18 21:48 Lidoderm Patch Removal MC 2 each DAILY@2200 ZACARIAS Administration Naproxen 500 mg 04/27/18 15:22 05/08/18 10:11 Naprosyn - PO 500 mg BID PRN Administration PAIN LEVEL 7 - 10 Multivit/Folic Acid/Iron 1 tab 04/28/18 10:00 05/08/18 10:09 Vitamins (Sjr) - PO 1 tab DAILY ZACARIAS Administration Pseudoephedrine/Triprolidine 1 combo 04/27/18 15:05 Actifed - PO TID PRN NASAL CONGESTION Thiamine HCl 100 mg 04/27/18 22:00 05/08/18 21:48 Vitamin B1 - PO Not Given HS ZACARIAS Current Side Effect: No Lab tests ordered: Yes Lab tests reviewed: Yes Provider note:: Patient will complete this program on 05/10/18. He has met his treatment goals and will continue to address his issues in halfway residential treatment at [facility]. Told health underwriter that from his participation in this program, he has learned the importance of changing his lifestyle in order to maintain abstinence. He is stable for discharge on 05/10/18 Total face to face time:: 35 Mental Status Exam - Mental Status Exam Alert and Oriented to: Time, Place, Person Cognitive Function: Fair Patient Appearance: Well Groomed Mood: Hopeful, Euthymic Affect: Appropriate Patient Behavior: Cooperative Speech Pattern: Clear Voice Loudness: Normal Thought Process: Intact, Goal Oriented Thought Disorder: Not Present Hallucinations: Denies Suicidal Ideation: Denies Homicidal Ideation: Denies Insight/Judgement: Fair Sleep: Fair Appetite: Good Muscle strength/Tone: Normal Gait/Station: Other (Uses a walker as ambulatory aid) Psychiatric Treatment Plan - Problem List (1) Opioid dependence Current Visit: Yes (2) Nicotine dependence Current Visit: No (3) Arthritis of both hips Current Visit: No (4) Hepatitis C Current Visit: No Qualifiers: Viral hepatitis chronicity: chronic (5) Walker as ambulation aid Current Visit: No
[2018-05-09] MEDS: METHYL SALICYLATE/MENTHOL OINT 30 GM TUBE TP SCH ×2 (10:14→21:50)
[2018-05-09] MEDS: LIDOCAINE 5% TOPICAL PATCH TP SCH (10:15)
[2018-05-09] MEDS: PRENATAL VITAMINS W/ FOLIC ACID TABLET (FP) PO SCH (10:15)
[2018-05-09] MEDS: NAPROXEN 500 MG TABLET (FP) PO PRN (10:15)
[2018-05-09] MEDS: THIAMINE HCL 100 MG TABLET (FP) PO SCH (21:51)
[2018-05-09] MEDS: LIDOCAINE PATCH REMOVAL MC SCH (21:51)
[2018-05-10 07:03] VITALS: BP 151/80; PULSE 86; TEMP 98
[2018-05-10] MEDS: PRENATAL VITAMINS W/ FOLIC ACID TABLET (FP) PO SCH (11:30)
[2018-05-10] MEDS: LIDOCAINE 5% TOPICAL PATCH TP SCH (11:30)
[2018-05-10] MEDS: METHYL SALICYLATE/MENTHOL OINT 30 GM TUBE TP SCH (11:30)
== END 2018-05-10 10:45 | disposition home or self-care (01) | DRG 895 ==
LOC: YASAS 14:44 → Y5N 14:49
PROVIDERS: ADMIT Psychiatry & Neurology Psychiatry; ATTEND Psychiatry & Neurology Psychiatry
PROC: HZ42ZZZ Group Counseling for Substance Abuse Treatment, Cognitive-Behavioral (ICD-10-PCS; principal; 2018-04-27)
DX: F10.20 Alcohol dependence, uncomplicated (principal); F17.210 Nicotine dependence, cigarettes, uncomplicated; B18.2 Chronic viral hepatitis C; M13.852 Other specified arthritis, left hip; M13.851 Other specified arthritis, right hip; M13.862 Other specified arthritis, left knee; M13.861 Other specified arthritis, right knee; R26.89 Other abnormalities of gait and mobility; Z99.89 Dependence on other enabling machines and devices; Z59.0 Homelessness